=== PATIENT | male | born 1955 | race Caucasian/White ===

== ENCOUNTER 2016-09-12 11:29 | Emergency (ER) | payer OTHER, BC ==
[2016-09-12] MEDS ORDERED: PROCHLORPERAZINE EDISYLATE INJ 10 MG/2 ML VIAL IV ONE (12:10)
[2016-09-12] MEDS ORDERED: DIPHENHYDRAMINE HCL 50 MG/ML VIAL IV ONE (12:10)
[2016-09-12] MEDS ORDERED: ONDANSETRON 4 MG TAB.RAPDIS PO ONE (12:10)
--- NOTE | 2016-09-12 12:18 | ER Document Report ---
Doctor's Note Notes: 09/12/16 12:11 I have greeted and performed a rapid initial assessment of this patient. A comprehensive ED assessment and evaluation of the patient, analysis of test results and completion of the medical decision making process will be conducted by additional ED providers. 60-year-old male presents with complaints of headache with associated nausea. Patient denies any previous similar episodes. Patient denies any neurological deficits or visual deficits General: Patient in no specific distress Neurological: Cranial nerves II-12 are intact
[2016-09-12 12:31] LABS: ABSOLUTE BASOPHILS # (AUTO) 0.1 10^3/uL (0.0-0.2); ABSOLUTE MONOCYTES (AUTO) 0.8 10^3/uL (0.1-1.4); ABSOLUTE NEUT (AUTO) 10.4 10^3/uL (1.7-8.2); BASOPHILS % (AUTO) 0.6 % (0-2); EOSINOPHILS % (AUTO) 0.1 % (0-6); HEMATOCRIT 43.3 % (37.9-51.0); HEMOGLOBIN 15.2 g/dL (13.5-17.0); HGB HCT DIFFERENCE 2.3; LYMPHOCYTES % (AUTO) 7.8 % (13-45); MEAN CORPUSCULAR HEMOGLOBIN 30.7 pg (27.0-33.4); MEAN CORPUSCULAR HGB CONC 35.1 g/dL (32.0-36.0); MEAN CORPUSCULAR VOLUME 88 fl (80-97); MONOCYTES % (AUTO) 6.7 % (3-13); RED BLOOD COUNT 4.96 10^6/uL (4.35-5.55); RED CELL DISTRIBUTION WIDTH 13.6 % (11.5-14.0); SEGMENTED NEUTROPHILS % (AUTO) 84.8 % (42-78); WHITE BLOOD COUNT 12.3 10^3/uL (4.0-10.5)
[2016-09-12 12:49] LABS: ALANINE AMINOTRANSFERASE 46 U/L (21-72); ALBUMIN 4.3 g/dL (3.5-5.0); ALKALINE PHOSPHATASE 64 U/L (38-126); ANION GAP 14 (5-19); ASPARTATE AMINO TRANSFERASE 27 U/L (17-59); BILIRUBIN,DIRECT 0.3 mg/dL (0.0-0.4); BILIRUBIN,TOTAL 0.9 mg/dL (0.2-1.3); BLOOD UREA NITROGEN 13 mg/dL (7-20); CALCIUM 9.3 mg/dL (8.4-10.2); CARBON DIOXIDE 24 mmol/L (22-30); CHLORIDE 101 mmol/L (98-107); GLUCOSE 113 mg/dL (75-110); POTASSIUM 4.7 mmol/L (3.6-5.0); SODIUM 138.7 mmol/L (137-145); TOTAL PROTEIN 7.2 g/dL (6.3-8.2)
[2016-09-12] MEDS ORDERED: NORMAL SALINE 1000 ML 1,000 ML IV ONE (12:59)
[2016-09-12] MEDS ORDERED: KETOROLAC TROMETHAMINE INJ/PF 30 MG/1 ML SDV IV ONE (12:59)
--- NOTE | 2016-09-12 13:04 | ER Document Report ---
ED Headache - General Mode of Arrival: Ambulatory Information source: Patient TRAVEL OUTSIDE OF THE [place] IN LAST 30 DAYS: No - HPI Patient complains to provider of: Headache Associated symptoms: Other - See above <ALICE HERNANDEZ - Last Filed: 09/12/16 13:10> <COLLIN BUTLER - Last Filed: 09/12/16 15:45> - General Chief Complaint: Headache Stated Complaint: headahce Notes: Patient is a 60 year old male, with a past medical history including HTN and hypercholesterolemia, who presents to the emergency department complaining of a headache onset yesterday. Patient reports the headache is located in the back of his head, is "terrible", and is not exacerbated by light. Patient also complains of nausea onset this morning and diaphoresis and chills last night. Patient denies abdominal pain and vomiting. Patient currently takes Losartan, Crestor, and Lasix. PCP: Dr. Leonard (ALICE HERNANDEZ) - Related Data Allergies/Adverse Reactions: No Known Allergies Allergy (Verified 09/12/16 11:31) Past Medical History - General Information source: Patient - Social History Smoking Status: Never Smoker Chew tobacco use (# tins/day): No Frequency of alcohol use: None Drug Abuse: None Family History: Reviewed & Not Pertinent Patient has suicidal ideation: No Patient has homicidal ideation: No - Past Medical History Cardiac Medical History: Reports: Hx Hypercholesterolemia, Hx Hypertension Surgical Hx: Negative - Immunizations Hx Diphtheria, Pertussis, Tetanus Vaccination: No <ALICE HERNANDEZ - Last Filed: 09/12/16 13:10> Review of Systems - Review of Systems Constitutional: See HPI, Chills, Diaphoresis EENT: No symptoms reported Cardiovascular: No symptoms reported Respiratory: No symptoms reported Gastrointestinal: See HPI, Nausea. denies: Abdominal pain, Vomiting Genitourinary: No symptoms reported Male Genitourinary: No symptoms reported Musculoskeletal: No symptoms reported Skin: No symptoms reported Hematologic/Lymphatic: No symptoms reported Neurological/Psychological: See HPI, Headaches -: Yes All other systems reviewed and negative <ALICE HERNANDEZ - Last Filed: 09/12/16 13:10> Physical Exam - Vital signs Interpretation: Tachycardic - General General appearance: Appears well, Alert - HEENT Head: Normocephalic, Atraumatic. No: Tenderness - scalp is not tender to palpation Eyes: Normal - no photophobia Neck: Other - C7 spinous process is tender to palpation. Cervical and trapezius muscles are nontender. Patient able to put chin to chest with no exacerbation of headache.. No: Carotid bruit - Respiratory Respiratory status: No respiratory distress Chest status: Nontender Breath sounds: Normal Chest palpation: Normal - Cardiovascular Rhythm: Tachycardia Heart sounds: Normal auscultation Murmur: No - Abdominal Inspection: Normal Distension: No distension Bowel sounds: Normal Tenderness: Nontender Organomegaly: No organomegaly - Extremities General upper extremity: Normal inspection General lower extremity: Normal inspection. No: Edema - Neurological Neuro grossly intact: Yes Cognition: Normal Orientation: AAOx4 Bev Coma Scale Eye Opening: Spontaneous [place] Coma Scale Verbal: Oriented [place] Coma Scale Motor: Obeys Commands Bev Coma Scale Total: 15 Speech: Normal - Psychological Associated symptoms: Normal affect, Normal mood - Skin Skin Temperature: Hot Skin Moisture: Diaphoretic Skin Color: Normal <ALICE HERNANDEZ - Last Filed: 09/12/16 13:10> <COLLIN BUTLER - Last Filed: 09/12/16 15:45> - Vital signs Vitals: Temp Pulse Resp BP Pulse Ox 98.2 F 112 H 18 133/75 H 95 09/12/16 11:32 09/12/16 11:32 09/12/16 11:32 09/12/16 11:32 09/12/16 11:32 Course - Laboratory Result Diagrams: 09/12/16 12:10 09/12/16 12:10 <ALICE HERNANDEZ - Last Filed: 09/12/16 13:10> - Laboratory Result Diagrams: 09/12/16 12:10 09/12/16 12:10 <COLLIN BUTLER - Last Filed: 09/12/16 15:45> - Re-evaluation Re-evalutation: 09/12/16 14:08 At this time the patient is sleeping soundly. He has had about a half liter of saline so far, he has not had to urinate. The Toradol seems to have improved his discomfort so he can fall asleep, the erythema noted to his face earlier has also gone since the Toradol was given. 09/12/16 15:41 The patient is awake now and feeling much better. He is not sure of any longer. He reports the pain in the back of his neck is just about completely gone. (COLLIN BUTLER) - Vital Signs Vital signs: Temp Pulse Resp BP Pulse Ox 98.2 F 112 H 18 133/75 H 95 09/12/16 11:32 09/12/16 11:32 09/12/16 12:45 09/12/16 11:32 09/12/16 11:32 - Laboratory Laboratory results interpreted by me: 09/12/16 09/12/16 12:10 12:10 WBC 12.3 H Seg Neutrophils % 84.8 H Lymphocytes % 7.8 L Absolute Neutrophils 10.4 H Glucose 113 H Discharge <ALICE HERNANDEZ - Last Filed: 09/12/16 13:10> <COLLIN BUTLER - Last Filed: 09/12/16 15:45> - Discharge Clinical Impression: Viral syndrome, Nausea, Chills Headache Qualifiers: Headache type: unspecified Headache chronicity pattern: acute headache Intractability: not intractable Qualified Code(s): R51 - Headache Condition: Stable Disposition: HOME, SELF-CARE Additional Instructions: Viral Syndrome: The physician has diagnosed a viral infection. Viruses not only cause "colds," but can cause many different symptoms including generalized aching, fever, headache, cough, diarrhea, nausea, vomiting, and fatigue. The treatment, for the most part, is simply relief of symptoms. This means that antibiotics are usually not given. Rest, fluids, pain medications and, occasionally, medication for the specific symptoms that are most bothersome will be prescribed. Use good handwashing to avoid passing the virus to others. Shared toys should be cleaned with disinfectant. Clean the toilets, sinks, and counter surfaces in bathrooms. Launder clothing in hot water. Contact the physician if you develop any new or unusual symptoms such as severe headache, stiff neck, high fever, chest pain, productive cough, or shortness of breath. You should be rechecked if you don't see marked improvement within seven to 10 days. TAKE 3 ADVIL EVERY SIX HOURS FOR PAIN, FEVER OR CHILLS IF NEEDED. DRINK SMALL SIPS OF COOL CLEAR LIQUIDS TONIGHT. TAKE THE ZOFRAN DISPENSED FOR NAUSEA IF NEEDED. GET PLENTY OF REST AND SLEEP. FOLLOW UP WITH YOUR DOCTOR IF NOT IMPROVING. RETURN TO THE EMERGENCY ROOM IF ANY NEW OR WORSENING SYMPTOMS. Referrals: RAMESH SANCHEZ MD [Primary Care Provider] - Follow up as needed Scribe Attestation: 09/12/16 15:45 I personally performed the services described in the documentation, reviewed and edited the documentation which was dictated to the scribe in my presence, and it accurately records my words and actions. (COLLIN BUTLER) Scribe Documentation - Scribe Written by Trace:: trace Claros, 09/12/16, 1308 acting as scribe for :: Ap <ALICE HERNANDEZ - Last Filed: 09/12/16 13:10>
[2016-09-12 15:04] LABS: APPEARANCE,URINE CLEAR; BILIRUBIN,URINE NEGATIVE (NEGATIVE); GLUCOSE, URINE NEGATIVE (NEGATIVE); KETONES,URINE NEGATIVE (NEGATIVE); LEUKOCYTE ESTERASE,URINE NEGATIVE (NEGATIVE); NITRITE,URINE NEGATIVE (NEGATIVE); PROTEIN,URINE NEGATIVE (NEGATIVE); URINE SPECIFIC GRAVITY 1.006; UROBILINOGEN,URINE NEGATIVE mg/dL (<2.0)
[2016-09-12] MEDS ORDERED: ONDANSETRON ODT 4 MG TAB (6 TAB/DSPK) PO PRN (15:44)
[2016-09-12 16:28] VITALS: BP 127/72
== END 2016-09-12 16:28 | disposition home or self-care (01) ==
LOC: ER 11:29
DX: R11.0 Nausea (principal); R68.83 Chills (without fever); B34.9 Viral infection, unspecified; R51 Headache; I10 Essential (primary) hypertension; E78.00 Pure hypercholesterolemia, unspecified; R61 Generalized hyperhidrosis; M54.2 Cervicalgia; R00.0 Tachycardia, unspecified; Z79.899 Other long term (current) drug therapy
CPT/HCPCS: 99284; 96361; 96374; 96375; 36415; 85025; 80053; 81001; 70450; J1200; S0119; J1885; J0780; J7030